=== PATIENT | female | born 2000 | race Two or more races ===

== ENCOUNTER 2023-07-28 14:06 | Emergency (ER) | payer OTHER ==
[~2023-07-28] VITALS: Ht 152.4 cm; Wt 65.3 kg
[2023-07-28] MEDS ORDERED: ZYRTEC10 M3 PO (14:27)
[2023-07-28] MEDS ORDERED: CLARITIN5 MG PO (14:27)
== END 2023-07-28 20:53 | disposition home or self-care (01) ==
LOC: ER 14:06
DX: S09.8XXA Other specified injuries of head, initial encounter (principal); V43.62XA Car passenger injured in collision with other type car in traffic accident, initial encounter; Y93.89 Activity, other specified; Y92.413 State road as the place of occurrence of the external cause